=== PATIENT | female | born 1995 | race Asian ===

== ENCOUNTER 2019-09-15 09:33 | Emergency (ER) | payer OTHER ==
[~2019-09-15] VITALS: Ht 165.1 cm; Wt 65.8 kg
[2019-09-15 09:41] VITALS: TEMP 98.1
[2019-09-15 10:33] VITALS: BP 128/78
== END 2019-09-15 10:33 | disposition home or self-care (01) ==
LOC: ED 09:33
DX: K04.7 Periapical abscess without sinus (principal)
CPT/HCPCS: 99282

== ENCOUNTER 2020-02-26 09:48 | Emergency (ER) | payer OTHER ==
[~2020-02-26] VITALS: Ht 167.6 cm; Wt 75.8 kg
[2020-02-26 09:59] VITALS: BP 103/53; TEMP 98.9
== END 2020-02-26 10:53 | disposition home or self-care (01) ==
LOC: ED 09:48
DX: R51 Headache (principal); K04.7 Periapical abscess without sinus
CPT/HCPCS: 99282

== ENCOUNTER 2020-04-05 10:26 | Emergency (ER) | payer OTHER ==
[~2020-04-05] VITALS: Ht 167.6 cm; Wt 74.8 kg
[2020-04-05 10:32] VITALS: BP 121/64; TEMP 98.8
== END 2020-04-05 11:39 | disposition home or self-care (01) ==
LOC: ED 10:26
DX: H65.192 Other acute nonsuppurative otitis media, left ear (principal); Z3A.32 32 weeks gestation of pregnancy
CPT/HCPCS: 99283; J0696

== ENCOUNTER 2022-07-27 08:28 | Emergency (ER) | payer OTHER ==
[~2022-07-27] VITALS: Ht 167.6 cm; Wt 74.8 kg
[2022-07-27 08:32] VITALS: BP 112/82; TEMP 98.7
== END 2022-07-27 09:36 | disposition home or self-care (01) ==
LOC: ED 08:28
DX: K02.9 Dental caries, unspecified (principal)
CPT/HCPCS: 99281